=== PATIENT | female | born 1930 | race Caucasian/White ===

== ENCOUNTER 2018-04-16 16:28 | Inpatient (IN) | payer MEDICARE, BC ==
[2018-04-16] MEDS ORDERED: Sodium Chloride 0.9% 1,000 ML ONE (17:03)
[2018-04-16 17:16] LABS: CHLORIDE,CL 88 mEq/L (98-106)
--- NOTE | 2018-04-16 17:20 | EDM.PDOC ---
ED HPI GENERAL MEDICAL PROBLEM - General Chief Complaint: General Stated Complaint: chills Time Seen by Provider: 04/16/18 17:00 Source of Information: Reports: Patient, Family History Limitations: Reports: No Limitations - History of Present Illness INITIAL COMMENTS - FREE TEXT/NARRATIVE: Kiki is an 88 year old female who presents to the ED via private vehicle with her . reports she has been struggling since having some teeth pulled and plates put in by the dentist last week. Reports she hasn't been eating or drinking much. He reports he returned home this afternoon to find her lying on the floor. He reports she was more confused than normal. Patient reports she hasn't felt well for a day or two. Feels she has gotten more weak than normal. had to carry her to car and she was assisted to cot by nursing staff. Does report she has a headache, but denies pain elsewhere. reports she has been incontinent of urine more than usual and has had some urinary frequency. She thinks maybe she had a fever today, but did not check temperature. Denies any chest pain, dizziness, shortness of breath , cough, abdominal pain, N/V/D. Onset Date: 04/14/18 Duration: Getting Worse Location: Reports: Generalized Associated Symptoms: Reports: Confusion, Fever/Chills, Headaches, Loss of Appetite, Malaise Bilateral Lower Jaw Pain Score (Numeric/FACES): 4 - Related Data Allergies Allergy/AdvReac Type Severity Reaction Status Date / Time amoxicillin Allergy Cannot Verified 04/16/18 16:50 Remember rocephin Allergy Rash Uncoded 04/16/18 16:50 Home Meds: Home Meds Gabapentin 300 mg PO 0700 06/21/14 [History] Gabapentin 600 mg PO 2100 06/21/14 [History] Lisinopril 40 mg PO DAILY 06/21/14 [History] Metoprolol Succinate 25 mg PO BID 06/21/14 [History] Temazepam 30 mg PO BEDTIME 06/21/14 [History] Warfarin [Coumadin] 2.5 mg PO MOTUWETH 06/21/14 [History] Warfarin [Coumadin] 5 mg PO SUFRSA 06/21/14 [History] hydroCHLOROthiazide [Hydrochlorothiazide] 25 mg PO DAILY 06/21/14 [History] Levothyroxine 75 mcg PO DAILY 04/16/18 [History] Past Medical History HEENT History: Reports: Cataract Cardiovascular History: Reports: Afib, High Cholesterol, Hypertension Genitourinary History: Reports: Urinary Incontinence Other Neuro History: dizziness - Past Surgical History HEENT Surgical History: Reports: Oral Surgery, Tonsillectomy Social & Family History - Family History Family Medical History: Noncontributory - Tobacco Use Smoking Status *Q: Never Smoker Second Hand Smoke Exposure: No - Living Situation & Occupation Living situation: Reports: , with Spouse Occupation: Retired ED ROS GENERAL - Review of Systems Review Of Systems: See Below Constitutional: Reports: Fever, Chills, Malaise, Weakness, Fatigue, Decreased Appetite HEENT: Reports: No Symptoms Respiratory: Reports: No Symptoms. Denies: Shortness of Breath, Cough, Sputum Cardiovascular: Reports: No Symptoms. Denies: Chest Pain, Edema Endocrine: Reports: No Symptoms GI/Abdominal: Reports: Decreased Appetite. Denies: Abdominal Pain, Diarrhea, Nausea, Vomiting : Reports: Frequency Musculoskeletal: Reports: No Symptoms Skin: Reports: No Symptoms Neurological: Reports: Confusion, Dizziness, Headache Psychiatric: Reports: No Symptoms Hematologic/Lymphatic: Reports: No Symptoms Immunologic: Reports: No Symptoms ED EXAM, GENERAL - Physical Exam Exam: See Below Exam Limited By: No Limitations General Appearance: Alert, WD/WN, No Apparent Distress Eye Exam: Bilateral Eye: EOMI, PERRL Throat/Mouth: Other (dry mucous membranes) Head: Atraumatic, Normocephalic Neck: Normal Inspection, Supple, Non-Tender, Full Range of Motion Respiratory/Chest: No Respiratory Distress, Lungs Clear, Normal Breath Sounds, No Accessory Muscle Use, Chest Non-Tender Cardiovascular: Normal Peripheral Pulses, No Edema, No Murmur, Irregularly Irregular Peripheral Pulses: 2+: Dorsalis Pedis (L), Dorsalis Pedis (R) GI/Abdominal: Normal Bowel Sounds, Soft, Non-Tender, No Organomegaly, No Distention, No Abnormal Bruit, No Mass Back Exam: Normal Inspection, Full Range of Motion. No: CVA Tenderness (L), CVA Tenderness (R) Extremities: Normal Inspection, Normal Range of Motion, Non-Tender, Normal Capillary Refill, No Pedal Edema Neurological: Alert, Oriented (to person & place, disoriented to time/situation) , No Motor/Sensory Deficits, Confused Psychiatric: Normal Affect, Normal Mood Skin Exam: Warm, Dry, Intact, Normal Color, No Rash Lymphatic: No Adenopathy Course - Vital Signs Last Recorded V/S: Last Vital Signs Temp 99.4 F 04/17/18 12:00 Pulse 102 H 04/17/18 12:00 Resp 20 04/17/18 12:00 BP 144/68 H 04/17/18 12:00 Pulse Ox 98 04/17/18 12:00 - Orders/Labs/Meds Orders: Active Orders 24 hr Category Date Time Status Patient Status [ADT] Routine ADT 04/16/18 19:05 Active Antiembolic Devices [RC] 1000,2200 Care 04/16/18 19:05 Active Cardiac Monitoring [RC] 0800,1999 Care 04/16/18 19:05 Active Notify Provider Vital Signs [RC] .PRN Care 04/16/18 19:05 Active Oxygen Therapy [RC] .PRN Care 04/16/18 19:05 Active Up With Assistance [RC] .PRN Care 04/16/18 19:05 Active Up to Chair [RC] .PRN Care 04/16/18 19:05 Active Vital Signs [RC] 0000,0400,0800,1200,1600,2000 Care 04/16/18 19:05 Active Mechanical Soft Diet [DIET] Diet 04/16/18 Dinner Active Chest 2V [CR] Routine Exams 04/17/18 09:00 Taken Head wo Cont [CT] Stat Exams 04/16/18 17:11 Taken BASIC METABOLIC PANEL,BMP [CHEM] DAILY Lab 04/18/18 05:00 Ordered BASIC METABOLIC PANEL,BMP [CHEM] DAILY Lab 04/19/18 05:00 Ordered BASIC METABOLIC PANEL,BMP [CHEM] DAILY Lab 04/20/18 05:00 Ordered CBC WITH AUTO DIFF [HEME] DAILY Lab 04/18/18 05:00 Ordered CBC WITH AUTO DIFF [HEME] DAILY Lab 04/19/18 05:00 Ordered CBC WITH AUTO DIFF [HEME] DAILY Lab 04/20/18 05:00 Ordered CULTURE BLOOD [BC] Stat Lab 04/16/18 16:55 Received CULTURE BLOOD [BC] Stat Lab 04/16/18 17:00 Received CULTURE URINE [RM] Stat Lab 04/16/18 16:52 Results Acetaminophen [Tylenol] Med 04/16/18 19:05 Active 650 mg PO Q4H PRN Ibuprofen [Motrin] Med 04/16/18 19:05 Active 600 mg PO Q6H PRN Antiembolic Hose [OM.PC] Per Unit Routine Oth 04/16/18 19:05 Ordered Blood Culture x2 Reflex Set [OM.PC] Stat Oth 04/16/18 17:08 Ordered Resuscitation Status Routine Resus Stat 04/16/18 18:02 Ordered Medication Orders Acetaminophen (Tylenol) 650 mg PO Q4H PRN PRN Reason: Pain (Mild 1-3)/fever Last Admin: 04/16/18 19:59 Dose: 650 mg Chlorhexidine Gluconate (Peridex 0.12% Rinse) 15 ml MUCMEM BID [facility] Last Admin: 04/17/18 09:16 Dose: 15 ml Gabapentin (Neurontin) 300 mg PO DAILY@0700 [facility] Last Admin: 04/17/18 08:48 Dose: Gabapentin (Neurontin) 600 mg PO DAILY@2100 [facility] Hydrochlorothiazide (Hydrochlorothiazide) 25 mg PO DAILY [facility] Last Admin: 04/17/18 09:16 Dose: 25 mg Levofloxacin/Dextrose 500 mg/ (Premix) 100 mls @ 100 mls/hr IV Q24H [facility] Last Admin: 04/16/18 19:43 Dose: 100 mls/hr Sodium Chloride (Normal Saline) 1,000 mls @ 75 mls/hr IV ASDIRECTED [facility] Stop: 04/19/18 08:00 Last Admin: 04/17/18 08:34 Dose: 75 mls/hr Ibuprofen (Motrin) 600 mg PO Q6H PRN PRN Reason: Pain (mild 1-3) Levothyroxine Sodium (Synthroid) 75 mcg PO ACBREAKFAST [facility] Last Admin: 04/17/18 06:52 Dose: 75 mcg Lisinopril (Prinivil) 40 mg PO DAILY [facility] Last Admin: 04/17/18 08:26 Dose: 40 mg Metoprolol Succinate (Toprol Xl) 25 mg PO BID [facility] Last Admin: 04/17/18 08:26 Dose: 25 mg Admin: 04/16/18 19:51 Dose: 25 mg Temazepam (Restoril) 30 mg PO BEDTIME [facility] Last Admin: 04/16/18 19:51 Dose: 30 mg Warfarin Sodium (Coumadin) 2.5 mg PO MoTuWeTh@1200 [facility] Warfarin Sodium (Coumadin) 5 mg PO SuFrSa@1200 [facility] Last Admin: 04/17/18 11:34 Dose: 5 mg Labs: Laboratory Tests 04/16/18 04/16/18 04/16/18 Range/Units 16:52 16:55 17:00 WBC 10.8 H (5.0-10.0) 10^3/uL RBC 4.23 (4.00-5.50) 10^6/uL Hgb 13.5 (12.0-16.0) g/dL Hct 38.5 (37.0-47.0) % MCV 91.0 (82.0-94.0) fL MCH 31.9 (27.0-32.0) pg MCHC 35.1 (33.0-38.0) g/dL RDW Coeff of Rich 12.6 (11.0-15.0) % Plt Count 223 (150-400) 10^3/uL Neut % (Auto) 73.6 (35-85) % Lymph % (Auto) 13.7 (10-55) % Parke % (Auto) 11.9 (0-16) % Eos % (Auto) 0.6 (0-5) % Baso % (Auto) 0.2 (0-3) % Neut # (Auto) 7.93 H (1.80-7.00) 10^3/uL Lymph # (Auto) 1.47 (1.00-4.80) 10^3/uL Parke # (Auto) 1.28 H (0.00-0.80) 10^3/uL Eos # (Auto) 0.06 (0.00-0.45) 10^3/uL Baso # (Auto) 0.02 10^3/uL PT (9.7-12.3) SEC INR (0.92-1.18) Sodium 122 L* (136-145) mEq/L Potassium 4.3 (3.5-5.0) mEq/L Chloride 88 L (98-106) mEq/L Carbon Dioxide 28 (21-32) mmol/L BUN 15 (7-18) mg/dL Creatinine 0.5 L (0.6-1.0) mg/dL Est Cr Clr Drug Dosing 60.72 mL/min Estimated GFR (MDRD) > 60 (>=60) mL/min Glucose 112 H (75-99) mg/dL Calcium 8.5 (8.4-10.1) mg/dL C-Reactive Protein 8.7 H (0.2-0.8) mg/dL Urine Color Yellow (YELLOW) Urine Appearance Slightly cloudy (CLEAR) Urine pH 7.5 (4.5-8.0) Ur Specific [place] 1.015 (1.003-1.020) Urine Protein 100 H (NEGATIVE) mg/dL Urine Glucose (UA) Negative (NEGATIVE) mg/dL Urine Ketones Negative (NEGATIVE) mg/dL Urine Occult Blood Moderate H (NEGATIVE) Urine Nitrite Negative (NEGATIVE) Urine Bilirubin Negative (NEGATIVE) Urine Urobilinogen 1.0 (0.2-1.0) EU/dL Ur Leukocyte Esterase Trace H (NEGATIVE) Urine RBC 30-40 H (0-5) /HPF Urine WBC 5-10 H (0-5) /HPF Ur Epithelial Cells Moderate H (NOT SEEN) /HPF Amorphous Sediment Few H (NOT SEEN) /HPF Urine Bacteria Few H (NOT SEEN) /HPF 04/16/18 Range/Units 17:00 WBC (5.0-10.0) 10^3/uL RBC (4.00-5.50) 10^6/uL Hgb (12.0-16.0) g/dL Hct (37.0-47.0) % MCV (82.0-94.0) fL MCH (27.0-32.0) pg MCHC (33.0-38.0) g/dL RDW Coeff of Rich (11.0-15.0) % Plt Count (150-400) 10^3/uL Neut % (Auto) (35-85) % Lymph % (Auto) (10-55) % Parke % (Auto) (0-16) % Eos % (Auto) (0-5) % Baso % (Auto) (0-3) % Neut # (Auto) (1.80-7.00) 10^3/uL Lymph # (Auto) (1.00-4.80) 10^3/uL Parke # (Auto) (0.00-0.80) 10^3/uL Eos # (Auto) (0.00-0.45) 10^3/uL Baso # (Auto) 10^3/uL PT 25.7 H (9.7-12.3) SEC INR 2.66 H (0.92-1.18) Sodium (136-145) mEq/L Potassium (3.5-5.0) mEq/L Chloride (98-106) mEq/L Carbon Dioxide (21-32) mmol/L BUN (7-18) mg/dL Creatinine (0.6-1.0) mg/dL Est Cr Clr Drug Dosing mL/min Estimated GFR (MDRD) (>=60) mL/min Glucose (75-99) mg/dL Calcium (8.4-10.1) mg/dL C-Reactive Protein (0.2-0.8) mg/dL Urine Color (YELLOW) Urine Appearance (CLEAR) Urine pH (4.5-8.0) Ur Specific [place] (1.003-1.020) Urine Protein (NEGATIVE) mg/dL Urine Glucose (UA) (NEGATIVE) mg/dL Urine Ketones (NEGATIVE) mg/dL Urine Occult Blood (NEGATIVE) Urine Nitrite (NEGATIVE) Urine Bilirubin (NEGATIVE) Urine Urobilinogen (0.2-1.0) EU/dL Ur Leukocyte Esterase (NEGATIVE) Urine RBC (0-5) /HPF Urine WBC (0-5) /HPF Ur Epithelial Cells (NOT SEEN) /HPF Amorphous Sediment (NOT SEEN) /HPF Urine Bacteria (NOT SEEN) /HPF Meds: Medications Generic Name Dose Route Start Last Admin Trade Name Freq PRN Reason Stop Dose Admin Acetaminophen 650 mg 04/16/18 19:05 04/16/18 19:59 Tylenol PO 650 mg Q4H PRN Administration Pain (Mild 1-3)/fever Chlorhexidine Gluconate 15 ml 04/17/18 08:00 04/17/18 09:16 Peridex 0.12% Rinse MUCMEM 15 ml BID NATE Administration Gabapentin 300 mg 04/17/18 08:45 04/17/18 08:48 Neurontin PO Not Given DAILY@0700 [facility] Gabapentin 600 mg 04/17/18 21:00 Neurontin PO DAILY@2100 [facility] Hydrochlorothiazide 25 mg 04/17/18 08:00 04/17/18 09:16 Hydrochlorothiazide PO 25 mg DAILY NATE Administration Levofloxacin/Dextrose 500 mg/ 100 mls @ 100 mls/hr 04/16/18 19:00 04/16/18 19 :43 Premix IV 100 mls/hr Q24H NATE Administration Sodium Chloride 1,000 mls @ 75 mls/hr 04/17/18 10:00 04/17/18 08:34 Normal Saline IV 04/19/18 08:00 75 mls/hr ASDIRECTED NATE Administration Ibuprofen 600 mg 04/16/18 19:05 Motrin PO Q6H PRN Pain (mild 1-3) Levothyroxine Sodium 75 mcg 04/17/18 07:00 04/17/18 06:52 Synthroid PO 75 mcg ACBREAKFAST N[facility] Administration Lisinopril 40 mg 04/17/18 08:00 04/17/18 08:26 Prinivil PO 40 mg DAILY [facility]ATE Administration Metoprolol Succinate 25 mg 04/16/18 20:00 04/17/18 08:26 Toprol Xl PO 25 mg BID NATE Administration Temazepam 30 mg 04/16/18 20:00 04/16/18 19:51 Restoril PO 30 mg BEDTIME [facility] Administration Warfarin Sodium 2.5 mg 04/19/18 12:00 Coumadin PO MoTuWeTh@1200 [facility] Warfarin Sodium 5 mg 04/17/18 12:00 04/17/18 11:34 Coumadin PO 5 mg SuFrSa@1200 [facility] Administration Discontinued Medications Generic Name Dose Route Start Last Admin Trade Name Adamq PRN Reason Stop Dose Admin Gabapentin 300 mg 04/17/18 07:00 04/17/18 06:55 Neurontin PO 300 mg 0700 N[facility] Administration Gabapentin 600 mg 04/16/18 21:00 04/16/18 21:23 Neurontin PO Not Given 2100 NATE Gabapentin Confirm 04/16/18 19:55 04/16/18 20:55 Neurontin Administered 04/16/18 19:56 Not Given Dose 600 mg .ROUTE .STK-MED ONE Gabapentin Confirm 04/17/18 06:52 04/17/18 06:54 Neurontin Administered 04/17/18 06:53 Not Given Dose 100 mg .ROUTE .STK-MED ONE Gabapentin Confirm 04/17/18 06:58 04/17/18 07:02 Neurontin Administered 04/17/18 06:59 Not Given Dose 200 mg .ROUTE .STK-MED ONE Hydrochlorothiazide 25 mg 04/17/18 08:00 04/17/18 08:48 Hydrochlorothiazide PO Not Given DAILY NATE Sodium Chloride Confirm 04/16/18 17:03 04/16/18 18:04 Normal Saline Administered 04/16/18 17:04 Not Given Dose 1,000 mls @ as directed .ROUTE .STK-MED ONE Sodium Chloride 1,000 mls @ 250 mls/hr 04/16/18 17:45 04/16/18 17:40 Normal Saline IV 250 mls/hr ASDIRECTED NATE Administration Sodium Chloride 1,000 mls @ 100 mls/hr 04/16/18 19:05 04/16/18 22:12 Normal Saline IV 04/17/18 10:00 100 mls/hr ASDIRECTED NATE Administration Non-Formulary Medication 75 mcg 04/17/18 08:00 Levothyroxine [Levothyroxine] PO DAILY NATE Non-Formulary Medication 40 mg 04/17/18 08:00 Lisinopril [Lisinopril] PO DAILY NATE Non-Formulary Medication 30 mg 04/16/18 20:00 Temazepam PO BEDTIME NATE Warfarin Sodium 5 mg 04/16/18 18:45 04/16/18 19:13 Coumadin PO Not Given SUFRSA NATE - Re-Assessments/Exams Free Text/Narrative Re-Assessment/Exam: 04/16/18 17:30 Discussed lab results with patient and . Sodium is very low. Discussed that this can be cause of confusion. 1 L NS infusing @ 250 mL/hr. Labs otherwise stable. Will admit to acute for hyponatremia and questionable UTI. Resumed care to corporation officer provider Hoang Kinney, who will await head CT and complete admit orders upon results. Departure - Departure Time of Disposition: 17:38 Disposition: Admitted As Inpatient 68 Condition: Fair Clinical Impression: Hyponatremia - Discharge Information *PRESCRIPTION DRUG MONITORING PROGRAM REVIEWED*: Not Applicable *COPY OF PRESCRIPTION DRUG MONITORING REPORT IN PATIENT KATHARINA: Not Applicable - Problem List & Annotations (1) Hyponatremia SNOMED Code(s): 20286805 Code(s): E87.1 - HYPO-OSMOLALITY AND HYPONATREMIA Status: Acute Current Visit: Yes (2) UTI (urinary tract infection) SNOMED Code(s): 35209896 Code(s): N39.0 - URINARY TRACT INFECTION, SITE NOT SPECIFIED Status: Acute Current Visit: Yes - Problem List Review Problem List Initiated/Reviewed/Updated: Yes - My Orders Last 24 Hours: My Active Orders 04/16/18 16:52 CULTURE URINE [RM] Stat 04/16/18 16:55 CULTURE BLOOD [BC] Stat 04/16/18 17:00 CULTURE BLOOD [BC] Stat 04/16/18 17:08 Blood Culture x2 Reflex Set [OM.PC] Stat 04/16/18 17:11 Head wo Cont [CT] Stat - Assessment/Plan Admission H&P: Please use this note as an admission H&P Last 24 Hours: My Active Orders 04/16/18 16:52 CULTURE URINE [RM] Stat 04/16/18 16:55 CULTURE BLOOD [BC] Stat 04/16/18 17:00 CULTURE BLOOD [BC] Stat 04/16/18 17:08 Blood Culture x2 Reflex Set [OM.PC] Stat 04/16/18 17:11 Head wo Cont [CT] Stat Plan: Patient hypovolemic with hyponatremia. Patient received 1L bolus of NS at 250 mL /hr. Gentle IV hydration following. Head CT negative for acute changes UA shows some pyuria. Will start antibiotics and await culture. INR stable. Continue home dose Coumadin. Repeat labs in am. Admit to acute.
[2018-04-16 17:32] LABS: SODIUM,NA 122 mEq/L (136-145)
[2018-04-16] MEDS ORDERED: Sodium Chloride 0.9% 1,000 ML IV SCH ×2 (17:45→19:05)
[2018-04-16] MEDS ORDERED: Warfarin 5 MG Tab PO SCH (18:45)
[2018-04-16] MEDS ORDERED: Ibuprofen 200 MG Tab PO PRN (19:05)
[2018-04-16] MEDS: Levofloxacin/Dextrose 5%-Water 500 MG in Premix Bag 1 BAG IV SCH (19:43)
[2018-04-16] MEDS: Gabapentin 300 MG Cap PO SCH ×2 (19:50→21:23)
[2018-04-16] MEDS: Temazepam 15 MG Cap PO SCH (19:51)
[2018-04-16] MEDS: Metoprolol Succinate 25 MG Tab.ER PO SCH (19:51)
[2018-04-16] MEDS ORDERED: Gabapentin 300 MG Cap ONE (19:55)
[2018-04-16] MEDS: Acetaminophen 325 MG Tab PO PRN (19:59)
[2018-04-16] MEDS ORDERED: TEMAZEPAM 30 MG PO SCH (20:00)
[2018-04-17] MEDS: Levothyroxine 50 MCG Tab PO SCH (06:52)
[2018-04-17] MEDS ORDERED: Gabapentin 100 MG Cap ONE ×2 (06:52→06:58)
[2018-04-17] MEDS ORDERED: Gabapentin 300 MG Cap PO SCH (07:00)
[2018-04-17 07:41] LABS: CHLORIDE,CL 100 mEq/L (98-106); SODIUM,NA 133 mEq/L (136-145)
[2018-04-17] MEDS ORDERED: Non-Formulary Medication 1 Each (Levothyroxine [Levothyroxine] 75 MCG) PO SCH (08:00)
[2018-04-17] MEDS ORDERED: Hydrochlorothiazide 25 MG Tab PO SCH (08:00)
[2018-04-17] MEDS ORDERED: Non-Formulary Medication 1 Each (Lisinopril [Lisinopril] 40 MG) PO SCH (08:00)
--- NOTE | 2018-04-17 08:17 | PCM.PN ---
- General Info Date of Service: 04/17/18 Functional Status: Reports: Pain Controlled, Tolerating Diet, Ambulating (with assistance to the bathroom) - Review of Systems General: Reports: Weakness (generalized) HEENT: Reports: No Symptoms Pulmonary: Reports: Cough. Denies: Shortness of Breath, Pleuritic Chest Pain, Sputum, Hemoptysis, Wheezing Cardiovascular: Reports: No Symptoms. Denies: Chest Pain, Palpitations, Dyspnea on Exertion, Edema, Lightheadedness Gastrointestinal: Reports: No Symptoms. Denies: Abdominal Pain, Decreased Appetite, Diarrhea, Nausea, Vomiting Genitourinary: Reports: No Symptoms. Denies: Dysuria, Frequency, Burning, Pain , Urgency, Incontinence, Hematuria, Retention, Flank Pain Musculoskeletal: Reports: No Symptoms Skin: Reports: No Symptoms Neurological: Reports: Headache, Other. Denies: Confusion, Dizziness, Numbness , Paresthesia, Seizure, Syncope, Tingling, Tremors, Trouble Speaking, Difficulty Walking, Weakness, Change in Speech, Gait Disturbance Psychiatric: Reports: No Symptoms - Patient Data Vitals - Most Recent: Last Vital Signs Temp 97.4 F 04/17/18 07:30 Pulse 73 04/17/18 07:30 Resp 20 04/17/18 07:30 BP 140/72 04/17/18 07:30 Pulse Ox 98 04/17/18 07:30 Weight - Most Recent: 101 lb Lab Results Last 24 Hours: Laboratory Results - last 24 hr 04/16/18 04/16/18 04/16/18 Range/Units 16:52 16:55 17:00 WBC 10.8 H (5.0-10.0) 10^3/uL RBC 4.23 (4.00-5.50) 10^6/uL Hgb 13.5 (12.0-16.0) g/dL Hct 38.5 (37.0-47.0) % MCV 91.0 (82.0-94.0) fL MCH 31.9 (27.0-32.0) pg MCHC 35.1 (33.0-38.0) g/dL RDW Coeff of Rich 12.6 (11.0-15.0) % Plt Count 223 (150-400) 10^3/uL Neut % (Auto) 73.6 (35-85) % Lymph % (Auto) 13.7 (10-55) % [place] % (Auto) 11.9 (0-16) % Eos % (Auto) 0.6 (0-5) % Baso % (Auto) 0.2 (0-3) % Neut # (Auto) 7.93 H (1.80-7.00) 10^3/uL Lymph # (Auto) 1.47 (1.00-4.80) 10^3/uL [place] # (Auto) 1.28 H (0.00-0.80) 10^3/uL Eos # (Auto) 0.06 (0.00-0.45) 10^3/uL Baso # (Auto) 0.02 10^3/uL PT (9.7-12.3) SEC INR (0.92-1.18) Sodium 122 L* (136-145) mEq/L Potassium 4.3 (3.5-5.0) mEq/L Chloride 88 L (98-106) mEq/L Carbon Dioxide 28 (21-32) mmol/L BUN 15 (7-18) mg/dL Creatinine 0.5 L (0.6-1.0) mg/dL Est Cr Clr Drug Dosing 60.72 mL/min Estimated GFR (MDRD) > 60 (>=60) mL/min Glucose 112 H (75-99) mg/dL Calcium 8.5 (8.4-10.1) mg/dL C-Reactive Protein 8.7 H (0.2-0.8) mg/dL TSH, Ultra Sensitive (0.36-5.60) uIU/mL Urine Color Yellow (YELLOW) Urine Appearance Slightly cloudy (CLEAR) Urine pH 7.5 (4.5-8.0) Ur Specific [place] 1.015 (1.003-1.020) Urine Protein 100 H (NEGATIVE) mg/dL Urine Glucose (UA) Negative (NEGATIVE) mg/dL Urine Ketones Negative (NEGATIVE) mg/dL Urine Occult Blood Moderate H (NEGATIVE) Urine Nitrite Negative (NEGATIVE) Urine Bilirubin Negative (NEGATIVE) Urine Urobilinogen 1.0 (0.2-1.0) EU/dL Ur Leukocyte Esterase Trace H (NEGATIVE) Urine RBC 30-40 H (0-5) /HPF Urine WBC 5-10 H (0-5) /HPF Ur Epithelial Cells Moderate H (NOT SEEN) /HPF Amorphous Sediment Few H (NOT SEEN) /HPF Urine Bacteria Few H (NOT SEEN) /HPF 04/16/18 04/17/18 04/17/18 Range/Units 17:00 07:10 07:10 WBC 9.3 (5.0-10.0) 10^3/uL RBC 4.19 (4.00-5.50) 10^6/uL Hgb 13.2 (12.0-16.0) g/dL Hct 38.9 (37.0-47.0) % MCV 92.8 (82.0-94.0) fL MCH 31.5 (27.0-32.0) pg MCHC 33.9 (33.0-38.0) g/dL RDW Coeff of Rich 12.9 (11.0-15.0) % Plt Count 202 (150-400) 10^3/uL Neut % (Auto) 69.7 (35-85) % Lymph % (Auto) 17.0 (10-55) % [place] % (Auto) 11.3 (0-16) % Eos % (Auto) 1.8 (0-5) % Baso % (Auto) 0.2 (0-3) % Neut # (Auto) 6.50 (1.80-7.00) 10^3/uL Lymph # (Auto) 1.59 (1.00-4.80) 10^3/uL [place] # (Auto) 1.06 H (0.00-0.80) 10^3/uL Eos # (Auto) 0.17 (0.00-0.45) 10^3/uL Baso # (Auto) 0.02 10^3/uL PT 25.7 H 31.6 H (9.7-12.3) SEC INR 2.66 H 3.32 H (0.92-1.18) Sodium (136-145) mEq/L Potassium (3.5-5.0) mEq/L Chloride (98-106) mEq/L Carbon Dioxide (21-32) mmol/L BUN (7-18) mg/dL Creatinine (0.6-1.0) mg/dL Est Cr Clr Drug Dosing mL/min Estimated GFR (MDRD) (>=60) mL/min Glucose (75-99) mg/dL Calcium (8.4-10.1) mg/dL C-Reactive Protein (0.2-0.8) mg/dL TSH, Ultra Sensitive (0.36-5.60) uIU/mL Urine Color (YELLOW) Urine Appearance (CLEAR) Urine pH (4.5-8.0) Ur Specific [place] (1.003-1.020) Urine Protein (NEGATIVE) mg/dL Urine Glucose (UA) (NEGATIVE) mg/dL Urine Ketones (NEGATIVE) mg/dL Urine Occult Blood (NEGATIVE) Urine Nitrite (NEGATIVE) Urine Bilirubin (NEGATIVE) Urine Urobilinogen (0.2-1.0) EU/dL Ur Leukocyte Esterase (NEGATIVE) Urine RBC (0-5) /HPF Urine WBC (0-5) /HPF Ur Epithelial Cells (NOT SEEN) /HPF Amorphous Sediment (NOT SEEN) /HPF Urine Bacteria (NOT SEEN) /HPF 04/17/18 Range/Units 07:10 WBC (5.0-10.0) 10^3/uL RBC (4.00-5.50) 10^6/uL Hgb (12.0-16.0) g/dL Hct (37.0-47.0) % MCV (82.0-94.0) fL MCH (27.0-32.0) pg MCHC (33.0-38.0) g/dL RDW Coeff of Rich (11.0-15.0) % Plt Count (150-400) 10^3/uL Neut % (Auto) (35-85) % Lymph % (Auto) (10-55) % [place] % (Auto) (0-16) % Eos % (Auto) (0-5) % Baso % (Auto) (0-3) % Neut # (Auto) (1.80-7.00) 10^3/uL Lymph # (Auto) (1.00-4.80) 10^3/uL [place] # (Auto) (0.00-0.80) 10^3/uL Eos # (Auto) (0.00-0.45) 10^3/uL Baso # (Auto) 10^3/uL PT (9.7-12.3) SEC INR (0.92-1.18) Sodium 133 L (136-145) mEq/L Potassium 4.8 (3.5-5.0) mEq/L Chloride 100 (98-106) mEq/L Carbon Dioxide 30 (21-32) mmol/L BUN 9 (7-18) mg/dL Creatinine 0.5 L (0.6-1.0) mg/dL Est Cr Clr Drug Dosing 58.41 mL/min Estimated GFR (MDRD) > 60 (>=60) mL/min Glucose 90 (75-99) mg/dL Calcium 7.9 L (8.4-10.1) mg/dL C-Reactive Protein 8.8 H (0.2-0.8) mg/dL TSH, Ultra Sensitive 1.47 (0.36-5.60) uIU/mL Urine Color (YELLOW) Urine Appearance (CLEAR) Urine pH (4.5-8.0) Ur Specific [place] (1.003-1.020) Urine Protein (NEGATIVE) mg/dL Urine Glucose (UA) (NEGATIVE) mg/dL Urine Ketones (NEGATIVE) mg/dL Urine Occult Blood (NEGATIVE) Urine Nitrite (NEGATIVE) Urine Bilirubin (NEGATIVE) Urine Urobilinogen (0.2-1.0) EU/dL Ur Leukocyte Esterase (NEGATIVE) Urine RBC (0-5) /HPF Urine WBC (0-5) /HPF Ur Epithelial Cells (NOT SEEN) /HPF Amorphous Sediment (NOT SEEN) /HPF Urine Bacteria (NOT SEEN) /HPF [place] Results Last 24 Hours: Microbiology 04/17/18 07:10 Influenza Type A Antigen Screen - Final Nasal, Unspecified NEGATIVE INFLUENZA A VIRUS AG Influenza Type B Antigen Screen - Final NEGATIVE INFLUENZA B VIRUS AG Med Orders - Current: Current Medications Acetaminophen (Tylenol) 650 mg PO Q4H PRN PRN Reason: Pain (Mild 1-3)/fever Last Admin: 04/16/18 19:59 Dose: 650 mg Chlorhexidine Gluconate (Peridex 0.12% Rinse) [address] [facility] Gabapentin (Neurontin) [address] [facility] Last Admin: 04/17/18 06:55 Dose: 300 mg Gabapentin (Neurontin) [address] [facility] Last Admin: 04/16/18 21:23 Dose: Not Given Hydrochlorothiazide (Hydrochlorothiazide) [address] [facility] Levofloxacin/Dextrose 500 mg/ (Premix) 100 mls @ 100 mls/hr IV Q24H [facility] Last Admin: 04/16/18 19:43 Dose: 100 mls/hr Sodium Chloride (Normal Saline) 1,000 mls @ 100 mls/hr IV ASDIRECTED [facility] Stop: 04/17/18 10:00 Last Admin: 04/16/18 22:12 Dose: 100 mls/hr Sodium Chloride (Normal Saline) 1,000 mls @ 75 mls/hr IV ASDIRECTED [facility] Stop: 04/19/18 08:00 Ibuprofen (Motrin) 600 mg PO Q6H PRN PRN Reason: Pain (mild 1-3) Levothyroxine Sodium (Synthroid) [address] [facility] Last Admin: 04/17/18 06:52 Dose: 75 mcg Lisinopril (Prinivil) [address] [facility] Metoprolol Succinate (Toprol Xl) [address] [facility] Last Admin: 04/16/18 19:51 Dose: 25 mg Temazepam (Restoril) [address] [facility] Last Admin: 04/16/18 19:51 Dose: 30 mg Warfarin Sodium (Coumadin) 2.5 mg PO MoTuWeTh@1200 [facility] Warfarin Sodium (Coumadin) 5 mg PO SuFrSa@1200 [facility] Discontinued Medications Gabapentin (Neurontin) Confirm Administered Dose 600 mg .ROUTE .STK-MED ONE Stop: 04/16/18 19:56 Last Admin: 04/16/18 20:55 Dose: Not Given Gabapentin (Neurontin) Confirm Administered Dose 100 mg .ROUTE .STK-MED ONE Stop: 04/17/18 06:53 Last Admin: 04/17/18 06:54 Dose: Not Given Gabapentin (Neurontin) Confirm Administered Dose 200 mg .ROUTE .STK-MED ONE Stop: 04/17/18 06:59 Last Admin: 04/17/18 07:02 Dose: Not Given Sodium Chloride (Normal Saline) Confirm Administered Dose 1,000 mls @ as directed .ROUTE .STK-MED ONE Stop: 04/16/18 17:04 Last Admin: 04/16/18 18:04 Dose: Not Given Sodium Chloride (Normal Saline) 1,000 mls @ 250 mls/hr IV ASDIRECTED [facility] Last Admin: 04/16/18 17:40 Dose: 250 mls/hr Non-Formulary Medication (Levothyroxine [Levothyroxine]) [address] [facility] Non-Formulary Medication (Lisinopril [Lisinopril]) [address] [facility] Non-Formulary Medication (Temazepam) [address] [facility] Warfarin Sodium (Coumadin) [address] [facility] Last Admin: 04/16/18 19:13 Dose: Not Given - Exam Quality Assessment: DVT Prophylaxis (on coumadin). No: Supplemental Oxygen, Skin Breakdown General: Alert, Oriented, Cooperative. No: No Acute Distress HEENT: Pupils Equal, Pupils Reactive, EOMI, Mucous Membr. Moist/[place], Other ( mouth: gums: upper bilateral mild swelling, tenderness, errythema, 2 small ulcers. Consistent with a small stomatitis.) Neck: Supple, Trachea Midline, No JVD Lungs: Clear to Auscultation, Normal Respiratory Effort. No: Decreased Breath Sounds, Crackles, Rales, Rhonchi, Rub, Stridor, Wheezing Cardiovascular: Regular Rate, Irregular Rhythm (84-100 controlled a-fib) GI/Abdominal Exam: Normal Bowel Sounds, Soft, Non-Tender, No Organomegaly, No Distention, No Abnormal Bruit, No Mass, Pelvis Stable Back Exam: Normal Inspection, Full Range of Motion. No: CVA Tenderness (L), CVA Tenderness (R), Decreased Range of Motion, Muscle Spasm, Paraspinal Tenderness, Vertebral Tenderness Extremities: Normal Inspection, Normal Range of Motion, Non-Tender, No Pedal Edema, Normal Capillary Refill. No: Pedal Edema, Slow Capillary Refill, Joint Swelling, Leg Pain, Limited Range of Motion, Increased Warmth, Mottled, Pallor, Redness Peripheral Pulses: 2+: Carotid (L), Carotid (R), Radial (L), Radial (R), Posterior Tibial (L), Posterior Tibial (R), Dorsalis Pedis (L), Dorsalis Pedis ( R) Skin: Warm, Dry, Intact Neurological: No New Focal Deficit, Normal Gait, Normal Speech, Strength Equal Bilateral, Sensation Intact, Cranial Nerves Intact Psy/Mental Status: Alert, Normal Affect, Normal Mood. No: Anxious, Depressed, Agitated, Hallucinations - Problem List Review Problem List Initiated/Reviewed/Updated: Yes - My Orders Last 24 Hours: My Active Orders 04/16/18 18:02 Resuscitation Status Routine 04/16/18 18:34 PRO B-TYPE NATRIUR PEPT,BNPPRO [CHEM] Stat 04/16/18 19:00 Levofloxacin/Dextrose 5%-Water [Levaquin in D5W 500 MG/100 ML] 500 mg Premix Bag 1 bag IV Q24H 04/16/18 19:05 Patient Status [ADT] Routine Antiembolic Devices [RC] 1000,2200 Cardiac Monitoring [RC] 0800,2000 Notify Provider Vital Signs [RC] .PRN Oxygen Therapy [RC] .PRN Up With Assistance [RC] .PRN Up to Chair [RC] .PRN Vital Signs [RC] 0000,0400,0800,1200,1600,2000 Acetaminophen [Tylenol] 650 mg PO Q4H PRN Ibuprofen [Motrin] 600 mg PO Q6H PRN Sodium Chloride 0.9% [Normal Saline] 1,000 ml IV ASDIRECTED Antiembolic Hose [OM.PC] Per Unit Routine EKG 12 Lead [EK] Stat 04/16/18 20:00 Metoprolol Succinate [Toprol XL] 25 mg PO BID Temazepam [Restoril] 30 mg PO BEDTIME 04/16/18 21:00 Gabapentin [Neurontin] 600 mg PO 2100 04/16/18 Dinner Mechanical Soft Diet [DIET] 04/17/18 07:00 Gabapentin [Neurontin] 300 mg PO 0700 Levothyroxine [Synthroid] 75 mcg PO ACBREAKFAST 04/17/18 08:00 Chlorhexidine Gluconate [Peridex 0.12% Rinse] 15 ml MUCMEM BID Lisinopril [Prinivil] 40 mg PO DAILY hydroCHLOROthiazide 25 mg PO DAILY 04/17/18 09:00 Chest 2V [CR] Routine 04/17/18 10:00 Sodium Chloride 0.9% [Normal Saline] 1,000 ml IV ASDIRECTED 04/17/18 12:00 Warfarin [Coumadin] 5 mg PO SuFrSa@1200 04/18/18 05:00 BASIC METABOLIC PANEL,BMP [CHEM] DAILY CBC WITH AUTO DIFF [HEME] DAILY CRP [C-REACTIVE PROTEIN] [CHEM] DAILY INR,PT,PROTHROMBIN TIME [COAG] DAILY 04/19/18 05:00 BASIC METABOLIC PANEL,BMP [CHEM] DAILY CBC WITH AUTO DIFF [HEME] DAILY CRP [C-REACTIVE PROTEIN] [CHEM] DAILY INR,PT,PROTHROMBIN TIME [COAG] DAILY 04/19/18 12:00 Warfarin [Coumadin] 2.5 mg PO Caren@1200 04/20/18 05:00 BASIC METABOLIC PANEL,BMP [CHEM] DAILY CBC WITH AUTO DIFF [HEME] DAILY CRP [C-REACTIVE PROTEIN] [CHEM] DAILY INR,PT,PROTHROMBIN TIME [COAG] DAILY 04/20/18 08:00 Thyroid or Neck (non vasc) [Head Neck Soft Tissue Bi] [US] Routine - Plan Plan:: This patient is an 88 year old female that was admitted from the ER last night. Patient reports that she has not been feeling well since having her teeth pulled earlier this week. She reprots having sores, tenderness, pain in the upper gums. She reports not being able to wear her dentures because of the pain. The patient reports that over the past couple of days having general weakness and generally not feeling well. Patient reports that she thinks she started running a fever yesterday. She reports that yesterday she felt confused. She was admitted with UTI and hyponatremia. The patient today is alert and oriented. She reports she still feels generally weak, but does feel improved from yesterday. The patient is able to ambulate to the bathroom with assistance today. Patient currently reports a mild headache. Her head CT was negative for acute abnormalities. I will treat the patient for stomatitis. She is also under current tx for UTI with IV Levaquin. Patient has a history of hyponatremia, but not as low as her admit NA of 122. The patient does have hx of hypothyroidism, I have ordered a scheduled US of the Thyroid and a TSH, T4 levels. Patient NA today is now 133. Her WBC yesterday was 10.8, today is 9.3. Her CRP yesterday was 8.8, today 8.9. Her INR yesterday was 2.66, today 3.32. At this time, no changes in coumadin, will redraw labs tomorrow. Will continue plan of care. I have added a CXR for cough.
[2018-04-17] MEDS: Lisinopril 20 MG Tab PO SCH (08:26)
[2018-04-17] MEDS: Metoprolol Succinate 25 MG Tab.ER PO SCH ×2 (08:26→19:38)
[2018-04-17] MEDS: Sodium Chloride 0.9% 1,000 ML IV SCH ×2 (08:34→23:33)
[2018-04-17] MEDS: Gabapentin 300 MG Cap PO SCH ×2 (08:48→20:10)
[2018-04-17] MEDS: Chlorhexidine Gluconate 0.12% Oral Rinse 15 ML Cup MUCMEM SCH ×2 (09:16→19:39)
[2018-04-17] MEDS: Hydrochlorothiazide 25 MG Tab PO SCH (09:16)
[2018-04-17] MEDS ORDERED: Warfarin 5 MG Tab PO SCH (12:00)
[2018-04-17] MEDS: Acetaminophen 325 MG Tab PO PRN (17:08)
[2018-04-17] MEDS: Levofloxacin/Dextrose 5%-Water 500 MG in Premix Bag 1 BAG IV SCH (18:58)
[2018-04-17] MEDS: Temazepam 15 MG Cap PO SCH (19:38)
[2018-04-18] MEDS: Gabapentin 300 MG Cap PO SCH ×2 (06:13→20:16)
[2018-04-18] MEDS: Levothyroxine 50 MCG Tab PO SCH (06:14)
[2018-04-18] MEDS: Lisinopril 20 MG Tab PO SCH (07:35)
[2018-04-18] MEDS: Hydrochlorothiazide 25 MG Tab PO SCH (07:36)
[2018-04-18] MEDS: Chlorhexidine Gluconate 0.12% Oral Rinse 15 ML Cup MUCMEM SCH ×2 (07:36→20:16)
[2018-04-18] MEDS: Metoprolol Succinate 25 MG Tab.ER PO SCH ×2 (07:36→20:16)
[2018-04-18 07:42] LABS: CHLORIDE,CL 102 mEq/L (98-106); SODIUM,NA 137 mEq/L (136-145)
--- NOTE | 2018-04-18 11:13 | PCM.PN ---
- General Info Date of Service: 04/18/18 Functional Status: Reports: Pain Controlled, Tolerating Diet (soft foods, but does have gum pain with eating. ) - Review of Systems General: Reports: Fever, Weakness, Chills HEENT: Reports: No Symptoms Pulmonary: Reports: Cough. Denies: Shortness of Breath, Pleuritic Chest Pain, Sputum, Hemoptysis, Wheezing Cardiovascular: Reports: No Symptoms Gastrointestinal: Reports: No Symptoms. Denies: Abdominal Pain, Diarrhea, Nausea, Vomiting Genitourinary: Reports: No Symptoms. Denies: Dysuria, Frequency, Burning, Pain , Urgency, Incontinence, Hematuria, Retention, Flank Pain Musculoskeletal: Reports: No Symptoms Skin: Reports: No Symptoms Neurological: Reports: No Symptoms. Denies: Confusion, Dizziness, Headache, Seizure, Syncope, Tingling, Tremors, Trouble Speaking, Weakness, Change in Speech Psychiatric: Reports: No Symptoms - Patient Data Vitals - Most Recent: Last Vital Signs Temp 99.0 F 04/18/18 07:50 Pulse 97 04/18/18 07:50 Resp 16 04/18/18 07:50 BP 146/83 H 04/18/18 07:50 Pulse Ox 97 04/18/18 07:50 Weight - Most Recent: 101 lb I&O - Last 24 Hours: Intake & Output 04/17/18 04/18/18 04/18/18 21:59 06:59 14:59 Intake Total Balance Lab Results Last 24 Hours: Laboratory Results - last 24 hr 04/18/18 04/18/18 04/18/18 Range/Units 07:10 07:10 07:10 WBC 8.0 (5.0-10.0) 10^3/uL RBC 3.98 L (4.00-5.50) 10^6/uL Hgb 12.7 (12.0-16.0) g/dL Hct 36.9 L (37.0-47.0) % MCV 92.7 (82.0-94.0) fL MCH 31.9 (27.0-32.0) pg MCHC 34.4 (33.0-38.0) g/dL RDW Coeff of Rich 12.9 (11.0-15.0) % Plt Count 210 (150-400) 10^3/uL Neut % (Auto) 64.9 (35-85) % Lymph % (Auto) 20.1 (10-55) % [place] % (Auto) 10.1 (0-16) % Eos % (Auto) 4.5 (0-5) % Baso % (Auto) 0.4 (0-3) % Neut # (Auto) 5.22 (1.80-7.00) 10^3/uL Lymph # (Auto) 1.62 (1.00-4.80) 10^3/uL [place] # (Auto) 0.81 H (0.00-0.80) 10^3/uL Eos # (Auto) 0.36 (0.00-0.45) 10^3/uL Baso # (Auto) 0.03 10^3/uL PT 48.9 H (9.7-12.3) SEC INR 5.32 H* (0.92-1.18) Sodium 137 (136-145) mEq/L Potassium 3.7 D (3.5-5.0) mEq/L Chloride 102 (98-106) mEq/L Carbon Dioxide 27 (21-32) mmol/L BUN 10 (7-18) mg/dL Creatinine 0.5 L (0.6-1.0) mg/dL Est Cr Clr Drug Dosing 58.41 mL/min Estimated GFR (MDRD) > 60 (>=60) mL/min Glucose 88 (75-99) mg/dL Calcium 7.8 L (8.4-10.1) mg/dL C-Reactive Protein 7.2 H (0.2-0.8) mg/dL [place] Results Last 24 Hours: Microbiology 04/16/18 16:52 Urine Culture - Final Urine, Voided 04/16/18 17:00 Aerobic Blood Culture - Preliminary Blood - Venous - Lab Draw NO GROWTH AFTER 1 DAY Anaerobic Blood Culture - Preliminary NO GROWTH AFTER 1 DAY 04/16/18 16:55 Aerobic Blood Culture - Preliminary Blood - Venous NO GROWTH AFTER 1 DAY Anaerobic Blood Culture - Preliminary NO GROWTH AFTER 1 DAY 04/17/18 07:10 Influenza Type A Antigen Screen - Final Nasal, Unspecified NEGATIVE INFLUENZA A VIRUS AG Influenza Type B Antigen Screen - Final NEGATIVE INFLUENZA B VIRUS AG Med Orders - Current: Current Medications Acetaminophen (Tylenol) 650 mg PO Q4H PRN PRN Reason: Pain (Mild 1-3)/fever Last Admin: 04/17/18 17:08 Dose: 650 mg Chlorhexidine Gluconate (Peridex 0.12% Rinse) 15 ml MUCMEM BID [facility] Last Admin: 04/18/18 07:36 Dose: 15 ml Gabapentin (Neurontin) 300 mg PO DAILY@0700 [facility] Last Admin: 04/18/18 06:13 Dose: 300 mg Gabapentin (Neurontin) 600 mg PO DAILY@2100 [facility] Last Admin: 04/17/18 20:10 Dose: 600 mg Hydrochlorothiazide (Hydrochlorothiazide) 25 mg PO DAILY [facility] Last Admin: 04/18/18 07:36 Dose: 25 mg Levofloxacin/Dextrose 500 mg/ (Premix) 100 mls @ 100 mls/hr IV Q24H [facility] Last Admin: 04/17/18 18:58 Dose: 100 mls/hr Ibuprofen (Motrin) 600 mg PO Q6H PRN PRN Reason: Pain (mild 1-3) Levothyroxine Sodium (Synthroid) 75 mcg PO ACBREAKFAST [facility] Last Admin: 04/18/18 06:14 Dose: 75 mcg Lisinopril (Prinivil) 40 mg PO DAILY [facility] Last Admin: 04/18/18 07:35 Dose: 40 mg Metoprolol Succinate (Toprol Xl) 25 mg PO BID [facility] Last Admin: 04/18/18 07:36 Dose: 25 mg Temazepam (Restoril) 30 mg PO BEDTIME [facility] Last Admin: 04/17/18 19:38 Dose: 30 mg Warfarin Sodium (Coumadin) 2.5 mg PO MoTuWeTh@1200 NATE Warfarin Sodium (Coumadin) 5 mg PO SuFrSa@1200 [facility] Last Admin: 04/17/18 11:34 Dose: 5 mg Discontinued Medications Gabapentin (Neurontin) 300 mg PO 0700 [facility] Last Admin: 04/17/18 06:55 Dose: 300 mg Gabapentin (Neurontin) 600 mg PO 2100 [facility] Last Admin: 04/16/18 21:23 Dose: Not Given Gabapentin (Neurontin) Confirm Administered Dose 600 mg .ROUTE .STK-MED ONE Stop: 04/16/18 19:56 Last Admin: 04/16/18 20:55 Dose: Not Given Gabapentin (Neurontin) Confirm Administered Dose 100 mg .ROUTE .STK-MED ONE Stop: 04/17/18 06:53 Last Admin: 04/17/18 06:54 Dose: Not Given Gabapentin (Neurontin) Confirm Administered Dose 200 mg .ROUTE .STK-MED ONE Stop: 04/17/18 06:59 Last Admin: 04/17/18 07:02 Dose: Not Given Hydrochlorothiazide (Hydrochlorothiazide) 25 mg PO DAILY [facility] Last Admin: 04/17/18 08:48 Dose: Not Given Sodium Chloride (Normal Saline) Confirm Administered Dose 1,000 mls @ as directed .ROUTE .STK-MED ONE Stop: 04/16/18 17:04 Last Admin: 04/16/18 18:04 Dose: Not Given Sodium Chloride (Normal Saline) 1,000 mls @ 250 mls/hr IV ASDIRECTED [facility] Last Admin: 04/16/18 17:40 Dose: 250 mls/hr Sodium Chloride (Normal Saline) 1,000 mls @ 100 mls/hr IV ASDIRECTED [facility] Stop: 04/17/18 10:00 Last Admin: 04/16/18 22:12 Dose: 100 mls/hr Sodium Chloride (Normal Saline) 1,000 mls @ 75 mls/hr IV ASDIRECTED [facility] Stop: 04/19/18 08:00 Last Admin: 04/17/18 23:33 Dose: 75 mls/hr Non-Formulary Medication (Levothyroxine [Levothyroxine]) 75 mcg PO DAILY [facility] Non-Formulary Medication (Lisinopril [Lisinopril]) 40 mg PO DAILY [facility] Non-Formulary Medication (Temazepam) 30 mg PO BEDTIME NATE Warfarin Sodium (Coumadin) 5 mg PO SUFRSA [facility] Last Admin: 04/16/18 19:13 Dose: Not Given - Exam General: Alert, Oriented, Cooperative, No Acute Distress HEENT: Pupils Equal, Pupils Reactive, EOMI, Mucous Membr. Moist/[place] Neck: Supple Lungs: Clear to Auscultation, Normal Respiratory Effort. No: Decreased Breath Sounds, Crackles, Rales, Rhonchi, Stridor, Wheezing Cardiovascular: Regular Rate, Irregular Rhythm, Other (a-fib controlled 96 rate) . No: Regular Rhythm GI/Abdominal Exam: Normal Bowel Sounds, Soft, Non-Tender, No Organomegaly, No Distention, No Abnormal Bruit, No Mass, Pelvis Stable Back Exam: Normal Inspection, Full Range of Motion. No: CVA Tenderness (L), CVA Tenderness (R) Extremities: Normal Inspection, Normal Range of Motion, Non-Tender, No Pedal Edema, Normal Capillary Refill Peripheral Pulses: 2+: Radial (L), Radial (R), Posterior Tibial (L), Posterior Tibial (R), Dorsalis Pedis (L), Dorsalis Pedis (R) Skin: Warm, Dry, Intact Neurological: No New Focal Deficit Psy/Mental Status: Alert, Normal Affect, Normal Mood - Problem List Review Problem List Initiated/Reviewed/Updated: Yes - My Orders Last 24 Hours: My Active Orders 04/17/18 12:00 Warfarin [Coumadin] 5 mg PO SuFrSa@1200 04/17/18 21:00 Gabapentin [Neurontin] 600 mg PO DAILY@2100 04/19/18 05:00 BASIC METABOLIC PANEL,BMP [CHEM] DAILY CBC WITH AUTO DIFF [HEME] DAILY CRP [C-REACTIVE PROTEIN] [CHEM] DAILY INR,PT,PROTHROMBIN TIME [COAG] DAILY 04/19/18 12:00 Warfarin [Coumadin] 2.5 mg PO MoTuWeTh@1200 04/20/18 05:00 BASIC METABOLIC PANEL,BMP [CHEM] DAILY CBC WITH AUTO DIFF [HEME] DAILY CRP [C-REACTIVE PROTEIN] [CHEM] DAILY INR,PT,PROTHROMBIN TIME [COAG] DAILY 04/20/18 08:00 Thyroid or Neck (non vasc) [Head Neck Soft Tissue Bi] [US] Routine - Plan Plan:: 04/18/18 0800am This patient is an 88 year old female that was admitted from the ER last night. Patient reports that she has not been feeling well since having her teeth pulled with plate on 04/08/18. She reports having sores, tenderness, pain in the upper gums. She reports not being able to wear her dentures because of the pain. The patient reports that over the past couple of days having general weakness and generally not feeling well. Patient reports that she thinks she started running a fever yesterday. She reports that yesterday she felt confused. She was admitted with UTI and hyponatremia. The patient today is alert and oriented. She reports she still feels generally weak, but does feel improved from yesterday. The patient is able to ambulate to the bathroom with assistance today. Patient currently reports a mild headache. Her head CT was negative for acute abnormalities. I will treat the patient for stomatitis. She is also under current tx for UTI with IV Levaquin. Patient has a history of hyponatremia, but not as low as her admit NA of 122. The patient does have hx of hypothyroidism, I have ordered a scheduled US of the Thyroid and a TSH, T4 levels. Patient NA today is now 133. Her WBC yesterday was 10.8, today is 9.3. Her CRP yesterday was 8.8, today 8.9. Her INR yesterday was 2.66, today 3.32. At this time, no changes in coumadin, will redraw labs tomorrow. Will continue plan of care. I have added a CXR for cough. 04/18/18 0900am This patient is an 88 year old female that was admitted from the ER last night. Patient reports that she has not been feeling well since having her teeth pulled with plate on 04/08/18. She reports having sores, tenderness, pain in the upper gums. She reports not being able to wear her dentures because of the pain. The patient reports that over the past couple of days having general weakness and generally not feeling well. Patient reports that she feels chilled today. Patient yesterday had fever of 101. Today, it was checked and is 99.0. he patient today is alert and oriented. She reports she still feels generally weak. She reports she feels about the same has yesterday. The patient today has been able to ambulate with mild assistance, but does well independently with walker. She was able to get a shower without assistance today. Patient currently being treated for UTI. CX of urine was contaminated and unreliable. Due to patient cough, I ordered a CXR. The impression of this is "New small right pleural effusion and right lower lobe pulmonary opacity. Retrocardiac left lower lobe consolidation and lingular opacity. Remainder unchanged. Cardiomegaly. Stable enlargement of the central pulmonary arteries bilaterally. Calcified tortuous aorta. Sclerosis anterior right rib 1. Demineralization. Stable left mid clavicle fracture. Stable thoracic compression deformities. Surgical clips int he neck." The patient does not have tenderness over her clavicle left. Today labs are wbc 8.0, INR 5.32, CRP 7.2. I have held her coumadin today. Will recheck labs with INR tomorrow. The patient currently on Levaquin for UTI, now also CXR results for opacities/cough. Ordered a lactic acid. Her NA today is wnl, discontinued fluids. Patient is drinking without difficulty. Will continue abx and plan.
[2018-04-18] MEDS ORDERED: Docusate Sodium 100 MG Cap PO PRN (11:44)
[2018-04-18] MEDS: Levofloxacin/Dextrose 5%-Water 500 MG in Premix Bag 1 BAG IV SCH (18:43)
[2018-04-18] MEDS: Temazepam 15 MG Cap PO SCH (20:16)
[2018-04-19] MEDS: Gabapentin 300 MG Cap PO SCH (06:13)
[2018-04-19] MEDS: Levothyroxine 50 MCG Tab PO SCH (06:13)
[2018-04-19 07:26] LABS: CHLORIDE,CL 99 mEq/L (98-106); SODIUM,NA 134 mEq/L (136-145)
[2018-04-19] MEDS: Lisinopril 20 MG Tab PO SCH (07:53)
[2018-04-19] MEDS: Hydrochlorothiazide 25 MG Tab PO SCH (07:54)
[2018-04-19] MEDS: Metoprolol Succinate 25 MG Tab.ER PO SCH (07:54)
[2018-04-19 07:55] VITALS: BP 117/61
[2018-04-19] MEDS: Chlorhexidine Gluconate 0.12% Oral Rinse 15 ML Cup MUCMEM SCH (08:31)
[2018-04-19] MEDS ORDERED: Warfarin 2.5 MG Tab PO SCH (12:00)
--- NOTE | 2018-04-19 15:00 | PCM.DCSUM1 ---
Discharge Summary - Hospital Course Free Text/Narrative:: Patient presented to ER on Thursday with increased weakness, anorexia and confusion. Patient recently had upper teeth removed and has been feeling discomfort to her gums and not eating or drinking well as a result. had been out and when returned found her lying on the floor. He had to assist her to get up due to weakness. Work up in the ER did show hyponatremia with a sodium of 122. UA did show leukocytes, Levaquin was started and urine culture ordered. Admitted and started on gentle hydration with NS. Diagnosis: Stroke: No Modified Jax Scale: No Symptoms at All Modified Oxford Scale Score: 0 - Discharge Data Discharge Date: 04/19/18 Discharge Disposition: Home, Self-Care 01 Condition: Fair - Patient Summary/Data Complications: none Hospital Course: Patient is feeling good. Is up and ambulating around the room and in halls. Is eating small amounts, continues to have gum soreness, using her bacterial rinse and wearing the dentures when she can tolerate. Sodium has improved to 134. IV Fluids have been stopped. Did develop mild cough so chest xray was done which showed small right infiltrate, continued to IV Levaquin. Patient denies any shortness of breath or increased cough this am. INR did get high at 5 so Coumadin has been held. Afebrile. WBC is normal. CRP improved to 5.3. Will discharge home today. Continue Levaquin. Will hold Coumadin and repeat INR on . - Patient Instructions Diet: Usual Diet as Tolerated Activity: As Tolerated Other/Special Instructions: INR on with Vita Ham. Hold Coumadin until that time. - Discharge Plan *PRESCRIPTION DRUG MONITORING PROGRAM REVIEWED*: Not Applicable *COPY OF PRESCRIPTION DRUG MONITORING REPORT IN PATIENT KATHARINA: Not Applicable Prescriptions/Med Rec: Chlorhexidine Gluconate [Peridex 0.12% Rinse] 15 ml MUCMEM BID #240 cup Levofloxacin [Levaquin] 500 mg PO DAILY #7 tablet Home Medications: Home Meds Gabapentin 300 mg PO 0700 06/21/14 [History] Gabapentin 600 mg PO 2100 06/21/14 [History] Lisinopril 40 mg PO DAILY 06/21/14 [History] Metoprolol Succinate 25 mg PO BID 06/21/14 [History] Temazepam 30 mg PO BEDTIME 06/21/14 [History] hydroCHLOROthiazide [Hydrochlorothiazide] 25 mg PO DAILY 06/21/14 [History] Levothyroxine 75 mcg PO DAILY 04/16/18 [History] Chlorhexidine Gluconate [Peridex 0.12% Rinse] 15 ml MUCMEM BID #240 cup [Rx] Levofloxacin [Levaquin] 500 mg PO DAILY #7 tablet 04/19/18 [Rx] Patient Handouts: Hyponatremia, Urinary Tract Infection, Adult Forms: ED Department Discharge Referrals: Vita Ham PA-C [Primary Care Provider] - (Follow up with Vita Ham in one week) - Discharge Summary/Plan Comment DC Time >30 min.: No - General Info Date of Service: 04/19/18 Admission Dx/Problem (Free Text: Hyponatremia Dehydration Weakness Functional Status: Reports: Pain Controlled, Tolerating Diet, Ambulating - Review of Systems General: Denies: Fever, Weakness, Fatigue HEENT: Reports: Other (mouth pain) Pulmonary: Reports: Cough. Denies: Shortness of Breath, Sputum Cardiovascular: Denies: Chest Pain, Edema, Lightheadedness Gastrointestinal: Denies: Abdominal Pain, Nausea, Vomiting Genitourinary: Reports: No Symptoms Musculoskeletal: Reports: No Symptoms Skin: Reports: No Symptoms Neurological: Reports: No Symptoms - Patient Data Vitals - Most Recent: Last Vital Signs Temp 98 F 04/19/18 07:57 Pulse 105 H 04/19/18 07:57 Resp 20 04/19/18 07:57 BP 117/61 04/19/18 07:57 Pulse Ox 97 04/19/18 07:57 Weight - Most Recent: 101 lb Lab Results - Last 24 hrs: Laboratory Results - last 24 hr 04/19/18 04/19/18 04/19/18 Range/Units 07:05 07:05 07:05 WBC 8.2 (5.0-10.0) 10^3/uL RBC 3.99 L (4.00-5.50) 10^6/uL Hgb 12.7 (12.0-16.0) g/dL Hct 36.5 L (37.0-47.0) % MCV 91.5 (82.0-94.0) fL MCH 31.8 (27.0-32.0) pg MCHC 34.8 (33.0-38.0) g/dL RDW Coeff of Rich 12.8 (11.0-15.0) % Plt Count 239 (150-400) 10^3/uL Neut % (Auto) 62.5 (35-85) % Lymph % (Auto) 24.0 (10-55) % [place] % (Auto) 10.2 (0-16) % Eos % (Auto) 2.8 (0-5) % Baso % (Auto) 0.5 (0-3) % Neut # (Auto) 5.10 (1.80-7.00) 10^3/uL Lymph # (Auto) 1.96 (1.00-4.80) 10^3/uL [place] # (Auto) 0.83 H (0.00-0.80) 10^3/uL Eos # (Auto) 0.23 (0.00-0.45) 10^3/uL Baso # (Auto) 0.04 10^3/uL PT 38.9 H (9.7-12.3) SEC INR 4.16 H* (0.92-1.18) Sodium 134 L (136-145) mEq/L Potassium 3.9 (3.5-5.0) mEq/L Chloride 99 (98-106) mEq/L Carbon Dioxide 29 (21-32) mmol/L BUN 9 (7-18) mg/dL Creatinine 0.5 L (0.6-1.0) mg/dL Est Cr Clr Drug Dosing 58.41 mL/min Estimated GFR (MDRD) > 60 (>=60) mL/min Glucose 91 (75-99) mg/dL Calcium 8.1 L (8.4-10.1) mg/dL C-Reactive Protein 5.3 H (0.2-0.8) mg/dL [place] Results - Last 24 hrs: Microbiology 04/16/18 17:00 Aerobic Blood Culture - Preliminary Blood - Venous - Lab Draw NO GROWTH AFTER 2 DAYS Anaerobic Blood Culture - Preliminary NO GROWTH AFTER 2 DAYS 04/16/18 16:55 Aerobic Blood Culture - Preliminary Blood - Venous NO GROWTH AFTER 2 DAYS Anaerobic Blood Culture - Preliminary NO GROWTH AFTER 2 DAYS Med Orders - Current: Current Medications Discontinued Medications Acetaminophen (Tylenol) 650 mg PO Q4H PRN PRN Reason: Pain (Mild 1-3)/fever Last Admin: 04/17/18 17:08 Dose: 650 mg Chlorhexidine Gluconate (Peridex 0.12% Rinse) 15 ml MUCMEM BID [facility] Last Admin: 04/19/18 08:31 Dose: 15 ml Docusate Sodium (Colace) 100 mg PO BID PRN PRN Reason: Constipation Last Admin: 04/18/18 12:02 Dose: 100 mg Gabapentin (Neurontin) 300 mg PO 0700 [facility] Last Admin: 04/17/18 06:55 Dose: 300 mg Gabapentin (Neurontin) 600 mg PO 2100 [facility] Last Admin: 04/16/18 21:23 Dose: Not Given Gabapentin (Neurontin) Confirm Administered Dose 600 mg .ROUTE .[employer]-MED ONE Stop: 04/16/18 19:56 Last Admin: 04/16/18 20:55 Dose: Not Given Gabapentin (Neurontin) Confirm Administered Dose 100 mg .ROUTE .[employer] ONE Stop: 04/17/18 06:53 Last Admin: 04/17/18 06:54 Dose: Not Given Gabapentin (Neurontin) Confirm Administered Dose 200 mg .ROUTE .[employer] ONE Stop: 04/17/18 06:59 Last Admin: 04/17/18 07:02 Dose: Not Given Gabapentin (Neurontin) 300 mg PO DAILY@0700 [facility] Last Admin: 04/19/18 06:13 Dose: 300 mg Gabapentin (Neurontin) 600 mg PO DAILY@2100 [facility] Last Admin: 04/18/18 20:16 Dose: 600 mg Hydrochlorothiazide (Hydrochlorothiazide) 25 mg PO DAILY [facility] Last Admin: 04/17/18 08:48 Dose: Not Given Hydrochlorothiazide (Hydrochlorothiazide) 25 mg PO DAILY [facility] Last Admin: 04/19/18 07:54 Dose: 25 mg Sodium Chloride (Normal Saline) Confirm Administered Dose 1,000 mls @ as directed .ROUTE .[employer]-MED ONE Stop: 04/16/18 17:04 Last Admin: 04/16/18 18:04 Dose: Not Given Sodium Chloride (Normal Saline) 1,000 mls @ 250 mls/hr IV ASDIRECTED [facility] Last Admin: 04/16/18 17:40 Dose: 250 mls/hr Levofloxacin/Dextrose 500 mg/ (Premix) 100 mls @ 100 mls/hr IV Q24H [facility] Last Admin: 04/18/18 18:43 Dose: 100 mls/hr Sodium Chloride (Normal Saline) 1,000 mls @ 100 mls/hr IV ASDIRECTED [facility] Stop: 04/17/18 10:00 Last Admin: 04/16/18 22:12 Dose: 100 mls/hr Sodium Chloride (Normal Saline) 1,000 mls @ 75 mls/hr IV ASDIRECTED [facility] Stop: 04/19/18 08:00 Last Admin: 04/17/18 23:33 Dose: 75 mls/hr Ibuprofen (Motrin) 600 mg PO Q6H PRN PRN Reason: Pain (mild 1-3) Levothyroxine Sodium (Synthroid) 75 mcg PO ACBREAKFAST [facility] Last Admin: 04/19/18 06:13 Dose: 75 mcg Lisinopril (Prinivil) 40 mg PO DAILY [facility] Last Admin: 04/19/18 07:53 Dose: 40 mg Metoprolol Succinate (Toprol Xl) 25 mg PO BID [facility] Last Admin: 04/19/18 07:54 Dose: 25 mg Non-Formulary Medication (Levothyroxine [Levothyroxine]) 75 mcg PO DAILY [facility] Non-Formulary Medication (Lisinopril [Lisinopril]) 40 mg PO DAILY [facility] Non-Formulary Medication (Temazepam) 30 mg PO BEDTIME [facility] Temazepam (Restoril) 30 mg PO BEDTIME [facility] Last Admin: 04/18/18 20:16 Dose: 30 mg Warfarin Sodium (Coumadin) 2.5 mg PO MoTuWeTh@1200 [facility] Warfarin Sodium (Coumadin) 5 mg PO SUFRSA [facility] Last Admin: 04/16/18 19:13 Dose: Not Given Warfarin Sodium (Coumadin) 5 mg PO SuFrSa@1200 [facility] Last Admin: 04/17/18 11:34 Dose: 5 mg - Exam General: Reports: Alert, Oriented HEENT: Reports: Mucous Membr. Moist/[place] Neck: Reports: Supple Lungs: Reports: Clear to Auscultation, Normal Respiratory Effort Cardiovascular: Reports: Regular Rate, Regular Rhythm GI/Abdominal Exam: Normal Bowel Sounds, Soft, Non-Tender Extremities: Normal Inspection, No Pedal Edema Skin: Reports: Warm, Dry Neurological: Reports: No New Focal Deficit
== END 2018-04-19 10:15 | disposition home or self-care (01) | DRG 690 ==
LOC: CC.ED 16:28 → CC.MS 18:02 → UNDOADMIN 18:26
PROVIDERS: ADMIT Nurse Practitioner Family; ATTEND Family Medicine
DX: N39.0 Urinary tract infection, site not specified (principal); E87.1 Hypo-osmolality and hyponatremia; E86.0 Dehydration; H26.9 Unspecified cataract; I48.91 Unspecified atrial fibrillation; E78.00 Pure hypercholesterolemia, unspecified; I10 Essential (primary) hypertension; K12.1 Other forms of stomatitis; Z79.899 Other long term (current) drug therapy; Z88.1 Allergy status to other antibiotic agents; Z79.01 Long term (current) use of anticoagulants
CPT/HCPCS: 36415; 70450; 71046; 80048; 81001; 83880; 84443; 85025; 85610; 86140; 87040; 87086; 87804; 93005; 99284-25; A9270-GY; J1956; J7030

== ENCOUNTER 2019-11-26 09:43 | Emergency (ER) | payer MEDICARE, BC ==
[2019-11-26 09:55] VITALS: BP 131/71; PULSE 72
--- NOTE | 2019-11-26 10:55 | EDM.PDOC ---
ED HPI GENERAL MEDICAL PROBLEM - General Chief Complaint: General Stated Complaint: Fall R Elbow Pain Time Seen by Provider: 11/26/19 10:53 Source of Information: Reports: Patient History Limitations: Reports: No Limitations - History of Present Illness INITIAL COMMENTS - FREE TEXT/NARRATIVE: This patient is an 89 year old female that presents to the ER. Patient reports her wanted her to get checked out today. She reports that she tripped over her feet and fell today on her right elbow. She reports that when she falls, sometimes she has a UTI. She denies any pain or symptoms. Onset: Today Onset Date: 11/26/19 Duration: Hour(s): (3) Location: Reports: Upper Extremity, Left Severity: Mild Improves with: Reports: None Worsens with: Reports: None Associated Symptoms: Reports: No Other Symptoms r elbow Pain Score (Numeric/FACES): 2 - Related Data Allergies Allergy/AdvReac Type Severity Reaction Status Date / Time amoxicillin Allergy Cannot Verified 11/26/19 10:26 Remember rocephin Allergy Rash Uncoded 11/26/19 10:26 Home Meds: Home Meds Gabapentin 300 mg PO 0700 06/21/14 [History] Gabapentin 600 mg PO 2100 06/21/14 [History] Lisinopril 40 mg PO DAILY 06/21/14 [History] Metoprolol Succinate 25 mg PO BID 06/21/14 [History] Temazepam 30 mg PO BEDTIME 06/21/14 [History] hydroCHLOROthiazide [Hydrochlorothiazide] 25 mg PO DAILY 06/21/14 [History] Levothyroxine 75 mcg PO DAILY 04/16/18 [History] Chlorhexidine Gluconate [Peridex 0.12% Rinse] 15 ml MUCMEM BID #240 cup 04/19/18 [Rx] Levofloxacin [Levaquin] 500 mg PO DAILY #7 tablet 04/19/18 [Rx] Past Medical History HEENT History: Reports: Cataract Cardiovascular History: Reports: Afib, High Cholesterol, Hypertension Genitourinary History: Reports: Urinary Incontinence Other Neuro History: dizziness - Past Surgical History HEENT Surgical History: Reports: Oral Surgery, Tonsillectomy Social & Family History - Family History Family Medical History: Noncontributory - Tobacco Use Tobacco Use Status *Q: Never Tobacco User Second Hand Smoke Exposure: No - Caffeine Use Caffeine Use: Reports: None - Recreational Drug Use Recreational Drug Use: No - Living Situation & Occupation Living situation: Reports: , with Spouse Occupation: Retired ED ROS GENERAL - Review of Systems Review Of Systems: See Below Constitutional: Reports: No Symptoms HEENT: Reports: No Symptoms Respiratory: Reports: No Symptoms Cardiovascular: Reports: No Symptoms Endocrine: Reports: No Symptoms GI/Abdominal: Reports: No Symptoms : Reports: No Symptoms Musculoskeletal: Reports: No Symptoms Skin: Reports: No Symptoms Neurological: Reports: No Symptoms Psychiatric: Reports: No Symptoms Hematologic/Lymphatic: Reports: No Symptoms Immunologic: Reports: No Symptoms ED EXAM, GENERAL - Physical Exam Exam: See Below Exam Limited By: No Limitations General Appearance: Alert, WD/WN, No Apparent Distress Eye Exam: Bilateral Eye: Normal Inspection, PERRL Respiratory/Chest: No Respiratory Distress, Lungs Clear, Normal Breath Sounds, No Accessory Muscle Use Cardiovascular: Normal Peripheral Pulses, Regular Rate, Rhythm, No Edema, No Gallop, No JVD, No Murmur, No Rub Peripheral Pulses: 2+: Radial (L), Radial (R) Back Exam: Normal Inspection Extremities: Normal Inspection, Normal Range of Motion, Non-Tender, No Pedal Edema, Normal Capillary Refill Neurological: Alert Psychiatric: Normal Affect, Normal Mood Skin Exam: Warm, Dry, Intact, Normal Color, No Rash Course - Vital Signs Last Recorded V/S: Last Vital Signs Temp 96.9 F 11/26/19 09:47 Pulse 72 11/26/19 09:47 Resp 18 11/26/19 09:47 BP 131/71 11/26/19 09:47 Pulse Ox 98 11/26/19 09:47 - Orders/Labs/Meds Orders: Active Orders 24 hr Category Date Time Status Elbow Min 3V Rt [CR] Stat Exams 11/26/19 09:55 Taken Labs: Laboratory Tests 11/26/19 Range/Units 09:55 Urine Color Yellow (YELLOW) Urine Appearance Clear (CLEAR) Urine pH 7.0 (4.5-8.0) Ur Specific [place] 1.020 (1.003-1.020) Urine Protein Negative (NEGATIVE) mg/dL Urine Glucose (UA) Negative (NEGATIVE) mg/dL Urine Ketones Negative (NEGATIVE) mg/dL Urine Occult Blood Small H (NEGATIVE) Urine Nitrite Negative (NEGATIVE) Urine Bilirubin Negative (NEGATIVE) Urine Urobilinogen 0.2 (0.2-1.0) EU/dL Ur Leukocyte Esterase Negative (NEGATIVE) Urine RBC 5-10 H (0-5) /HPF Urine WBC Not seen (0-5) /HPF - Radiology Interpretation Free Text/Narrative:: Left elbow: No fx. Departure - Departure Time of Disposition: 10:53 Disposition: Home, Self-Care 01 Condition: Good Clinical Impression: Fall Qualifiers: Encounter type: initial encounter Qualified Code(s): W19.XXXA - Unspecified fall, initial encounter - Discharge Information *PRESCRIPTION DRUG MONITORING PROGRAM REVIEWED*: Not Applicable *COPY OF PRESCRIPTION DRUG MONITORING REPORT IN PATIENT KATHARINA: Not Applicable Instructions: Fall Prevention in the Home, Adult, [id number] Referrals: Vita Ham PA-C [Primary Care Provider] - Forms: ED Department Discharge Additional Instructions: Followup with primary care provider Return for emergencies or other concerns Urine shows no infection today Sepsis Event Note (ED) - Evaluation Sepsis Screening Result: No Definite Risk - Focused Exam Vital Signs: Vital Signs Temp Pulse Resp BP Pulse Ox 11/26/19 09:47 96.9 F 72 18 131/71 98 - My Orders Last 24 Hours: My Active Orders 11/26/19 09:55 Elbow Min 3V Rt [CR] Stat - Assessment/Plan Last 24 Hours: My Active Orders 11/26/19 09:55 Elbow Min 3V Rt [CR] Stat Plan: PLEASE SEE RN NOTE FOR PFSH
== END 2019-11-26 11:05 | disposition home or self-care (01) ==
LOC: CC.ED 09:43
DX: Z04.3 Encounter for examination and observation following other accident (principal); I48.91 Unspecified atrial fibrillation; I10 Essential (primary) hypertension; Z79.899 Other long term (current) drug therapy; Z88.1 Allergy status to other antibiotic agents
CPT/HCPCS: 73080-RT; 81001; 99283